=== PATIENT | male | born 1985 | race African-American/Black ===

== ENCOUNTER 2017-11-23 12:58 | Emergency (ER) | payer OTHER ==
[~2017-11-23] VITALS: Ht 180.3 cm; Wt 79.8 kg
[2017-11-23 13:23] LABS: ABSOLUTE BASOPHIL COUNT 0 /CUMM (0.0-0.2); ABSOLUTE EOSINOPHIL COUNT 0.1 /CUMM (0.0-0.7); ABSOLUTE GRANULOCYTE CT 1.4 /CUMM (1.4-6.5); ABSOLUTE LYMPH COUNT 1.4 /CUMM (1.2-3.4); ABSOLUTE MONOCYTE COUNT 0.4 /CUMM (0.10-0.60); BASOPHIL % 0.6 % (0.0-2.0); EOSINOPHIL % 3.9 % (0-5); GRANULOCYTE % 41.1 % (42.2-75.2); HEMATOCRIT 41.3 % (42-52); MEAN CORPUSCULAR HGB CONC 35.1 G/DL (33.0-37.0); MEAN CORPUSCULAR VOLUME 88.3 FL (80.0-94.0); MEAN PLATELET VOLUME 8.3 FL (7.4-10.4); PLATELET COUNT 168 /CUMM (130-400); RBC DISTRIBUTION WIDTH 13.3 % (11.5-14.5); RED BLOOD CELL CT 4.67 /CUMM (4.70-6.10); WHITE BLOOD CELL COUNT 3.4 /CUMM (4.8-10.8)
--- NOTE | 2017-11-23 14:14 | CT SCAN REPORT ---
EXAMINATION: CT ABDOMEN AND PELVIS WITHOUT CONTRAST CLINICAL INFORMATION: Right flank and right lower back pain. Presumptive diagnosis of kidney stones. COMPARISON: None. TECHNIQUE: Multidetector volumetric imaging was performed from the superior aspect of the liver through the pubic symphysis. Sagittal and coronal reformatted images were obtained on the technologist workstation. DLP: 253.44 mGy-cm. FINDINGS: LUNG BASES: The visualized lung bases are unremarkable. LIVER, GALLBLADDER, AND BILIARY TREE: The liver is normal in size, shape, and attenuation. No focal hepatic lesion on noncontrast imaging. No biliary ductal dilatation is present. The gallbladder is unremarkable with no evidence of radiopaque gallstones, gallbladder wall thickening, or obvious pericholecystic inflammatory changes. PANCREAS: Unremarkable on noncontrast imaging. SPLEEN, ADRENAL GLANDS: Unremarkable on noncontrast imaging. KIDNEYS AND URETERS: The kidneys are normal in size, shape, and attenuation. No hydronephrosis, hydroureter, or calculi seen. No perinephric stranding. BLADDER: There is a 0.4 cm calcification seen in the posterior midline along the bladder dome (series 2, image 69), which on reconstructed sagittal sequences appears to lie just posterior to the bladder, likely a small phlebolith. Other phleboliths are also seen in the pelvis bilaterally. No definite bladder calculi are seen. Bladder is, however, suboptimally assessed due to decompressed state. PELVIC VISCERA: Unremarkable. GASTROINTESTINAL TRACT: The small and large bowel are unremarkable. The proximal segment of the appendix extending from its origin from the cecum over a length of approximately 2.5 to 3 cm, demonstrates low-level internal hyperdensity, possibly representing ingested debris versus early appendicolith formation. There is air seen beyond this segment in the mid and distal appendix and no abnormal dilatation of the appendix or periappendiceal stranding is noted. The cecal base and terminal ileum are unremarkable. ABDOMINAL WALL: No significant hernia is appreciated. LYMPH NODES, VASCULAR: Unremarkable. OSSEOUS STRUCTURES: There is a small lucency with sclerotic margins in the right iliac bone (series 2, image 52), consistent with an incidental small bone cyst. Bony structures otherwise unremarkable. IMPRESSION: 1. No evidence of nephrolithiasis or obstructive uropathy. 2. No focal right lower quadrant process seen to explain the patient's pain. Incidental hyperdense luminal material is seen in the proximal appendix, which is otherwise unremarkable.
[2017-11-23] MEDS ORDERED: TRAMADOL HCL50 M1 PO (14:55)
[2017-11-23] MEDS ORDERED: IBUPROFEN800 M1 PO (14:56)
[2017-11-23] MEDS ORDERED: ZOFRAN ODT4 M1 SL (14:56)
--- NOTE | 2017-11-23 14:56 | ED GENERAL ADULT ---
History of Present Illness General Chief Complaint: General Adult Stated Complaint: ABD PAIN, BACK PAIN, +V Source: patient Exam Limitations: no limitations Vital Signs & Intake/Output Vital Signs & Intake/Output Vital Signs Date Time Temp Pulse Resp B/P B/P Pulse O2 O2 Flow FiO2 Mean Ox Delivery Rate 11/23 1508 98.1 68 18 124/57 97 11/23 1302 98.1 66 16 141/94 98 Room Air Allergies Coded Allergies: Penicillins (Mild, UNKNOWN 10/19/17) Reconcile Medications Ibuprofen 800 MG TABLET 1 TAB PO TID PRN pain Ondansetron (Zofran Odt) 4 MG TAB.RAPDIS 1 TAB SL TID PRN nausea Tramadol HCl 50 MG TABLET 1 TAB PO Q6P PRN PAIN Triage Note: PT COMPLAINS OF SUDDEN ONSET OF R SIDE FLANK PAIN AND BURNING WITH URINATION THAT STARTED AROUND NOON, PAIN IS SHARP AND CONSTANT AND POSITIVE NAUSEA Triage Nurses Notes Reviewed? yes Onset: Abrupt Duration: day(s): Timing: single episode today Injury Environment: home Severity: mild, moderate No Modifying Factors: none HPI: 32-year-old male no medical history presents for evaluation of sudden onset of right flank and right lower back pain. Patient states symptoms started several hours prior to presentation. The symptoms have improved since first starting. The pain is located in the right flank radiates to the right back. Describes cramping. He reports associated nausea and one episode of vomiting. He denies frequency or urgency dysuria or penile discharge. No fevers no lower abdominal pain or chest pain. No fevers. Past History Travel History Traveled to [place] past 21 day No Medical History Any Pertinent Medical History? see below for history Neurological: NONE EENT: NONE Cardiovascular: NONE Respiratory: NONE Gastrointestinal: NONE Hepatic: NONE Renal: NONE Musculoskeletal: NONE Psychiatric: NONE Endocrine: NONE Blood Disorders: NONE Cancer(s): NONE Surgical History Surgical History: non-contributory Psychosocial History What is your primary language Swiss Tobacco Use: Never used ETOH Use: denies use Illicit Drug Use: denies illicit drug use Family History Hx Contributory? No Review of Systems Review of Systems Constitutional: Reports: no symptoms. EENTM: Reports: no symptoms. Respiratory: Reports: no symptoms. Cardiovascular: Reports: no symptoms. GI: Reports: see HPI, abdominal pain (FLANK). Genitourinary: Reports: no symptoms. Musculoskeletal: Reports: see HPI, back pain. Skin: Reports: no symptoms. Neurological/Psychological: Reports: no symptoms. Hematologic/Endocrine: Reports: no symptoms. Immunologic/Allergic: Reports: no symptoms. All Other Systems: Reviewed and Negative Physical Exam Physical Exam General Appearance: well developed/nourished, no apparent distress, alert, awake Head: atraumatic, normal appearance Eyes: Bilateral: normal appearance, PERRL, EOMI. Ears, Nose, Throat: hearing grossly normal Neck: normal inspection, supple, full range of motion Respiratory: normal breath sounds, chest non-tender, no respiratory distress, lungs clear Cardiovascular: regular rate/rhythm, normal peripheral pulses Peripheral Pulses: 2+ radial (R), 2+ radial (L) Gastrointestinal: normal bowel sounds, soft, no organomegaly, tenderness (RIGHT FLANK) Back: normal inspection, normal range of motion, RIGHT-SIDED LUMBAR PARASPINAL MUSCLES TENDER PALPATION AND NO MIDLINE TENDERNESS NO cva TENDERNESS Extremities: normal inspection, normal range of motion, no edema Neurologic/Psych: no motor/sensory deficits, awake, alert, oriented x 3, normal gait Skin: intact, normal color, warm/dry Lymphatic: no anterior cervical guillermina Core Measures ACS in differential dx? No CVA/TIA Diagnosis: No Sepsis Present: No Sepsis Focused Exam Completed? No Progress Differential Diagnoses I considered the following diagnoses in my evaluation of the patient: [Kidney stone, appendicitis, UTI, pyelonephritis, STD] Plan of Care: Orders Procedure Date/time Status Add-on Test (ER Only) 11/23 1418 Active URINALYSIS 11/23 1305 Complete COMPREHENSIVE METABOLIC PANEL 11/23 1305 Complete CBC WITHOUT DIFFERENTIAL 11/23 1305 Complete Laboratory Tests 11/23/17 1417: Urinalysis LIGHT H, Urine Color ANGÉLICA, Urine Clarity CLEAR, Urine pH 6.0, Ur Specific [place] 1.025, Urine Protein 30 H, Urine Ketones TRACE H, Urine Nitrite NEG, Urine Bilirubin NEG, Urine Urobilinogen 1.0, Ur Leukocyte Esterase NEG, Ur Microscopic SEDIMENT EXAMINED, Urine RBC 25-50 H, Urine Bacteria MOD H , Urine Mucus MOD H, Urine Hemoglobin LARGE H, Urine Glucose NEG 11/23/17 1316: Anion Gap 9, Estimated GFR > 60, BUN/Creatinine Ratio 17.5, Glucose 108 H, Calcium 9.5, Total Bilirubin 1.5 H, AST 42, ALT 36, Alkaline Phosphatase 49, Total Protein 7.2, Albumin 4.5, Globulin 2.7, Albumin/Globulin Ratio 1.7, CBC w Diff NO MAN DIFF REQ, RBC 4.67 L, MCV 88.3, MCH 31.0, MCHC 35.1, RDW 13.3, MPV 8.3, Gran % 41.1 L, Lymphocytes % 42.3, Monocytes % 12.1 H, Eosinophils % 3.9, Basophils % 0.6, Absolute Granulocytes 1.4, Absolute Lymphocytes 1.4, Absolute Monocytes 0.4, Absolute Eosinophils 0.1, Absolute Basophils 0 Patient is here with right flank pain. Symptoms started suddenly associated with nausea and vomiting. There is right flank and right lower back is tender to palpation. Patient is medicated with Toradol Zofran IV fluids. Lab CT scan ordered. CT scan is negative for any acute findings. Blood work is unremarkable. Urinalysis does show a large amount of blood. This may represent a passed kidney stone. CT scan impression Incidental hyperdense luminal material is seen in the proximal appendix, which is otherwise unremarkable. Patient has no tenderness at McBurney's point or the right lower quadrant his pain is in the right flank. He has no white count he is afebrile. Considered the possibility of appendicitis however a passed kidney stone is more likely at this time. Patient is feeling much better after Toradol Zofran is able tolerate fluids. He was given instructions to rest drink plenty of fluids Tylenol ibuprofen for pain and tramadol for severe pain and Zofran for nausea follow-up with urology. Discussed return precautions in detail. Patient agrees the plan Diagnostic Imaging: Viewed by Me: CT Scan. Discussed w/RAD: CT Scan. Radiology Impression: PATIENT: TONJA LEON PRESENT AGE: 32 PATIENT ACCOUNT NO: [id number] : 86 LOCATION: [facility] ORDERING PHYSICIAN: Haris JENNINGS SERVICE DATE: 11/23/17 EXAM TYPE: CAT - CT ABD & PELVIS W/O IV CONTRAS EXAMINATION: CT ABDOMEN AND PELVIS WITHOUT CONTRAST CLINICAL INFORMATION: Right flank and right lower back pain. Presumptive diagnosis of kidney stones. COMPARISON: None. TECHNIQUE: Multidetector volumetric imaging was performed from the superior aspect of the liver through the pubic symphysis. Sagittal and coronal reformatted images were obtained on the technologist workstation. DLP: 253.44 mGy-cm. FINDINGS: LUNG BASES: The visualized lung bases are unremarkable. LIVER, GALLBLADDER, AND BILIARY TREE: The liver is normal in size, shape, and attenuation. No focal hepatic lesion on noncontrast imaging. No biliary ductal dilatation is present. The gallbladder is unremarkable with no evidence of radiopaque gallstones, gallbladder wall thickening, or obvious pericholecystic inflammatory changes. PANCREAS: Unremarkable on noncontrast imaging. SPLEEN, ADRENAL GLANDS: Unremarkable on noncontrast imaging. KIDNEYS AND URETERS: The kidneys are normal in size, shape, and attenuation. No hydronephrosis, hydroureter, or calculi seen. No perinephric stranding. BLADDER: There is a 0.4 cm calcification seen in the posterior midline along the bladder dome (series 2, image 69), which on reconstructed sagittal sequences appears to lie just posterior to the bladder, likely a small phlebolith. Other phleboliths are also seen in the pelvis bilaterally. No definite bladder calculi are seen. Bladder is, however, suboptimally assessed due to decompressed state. PELVIC VISCERA: Unremarkable. GASTROINTESTINAL TRACT: The small and large bowel are unremarkable. The proximal segment of the appendix extending from its origin from the cecum over a length of approximately 2.5 to 3 cm, demonstrates low-level internal hyperdensity, possibly representing ingested debris versus early appendicolith formation. There is air seen beyond this segment in the mid and distal appendix and no abnormal dilatation of the appendix or periappendiceal stranding is noted. The cecal base and terminal ileum are unremarkable. ABDOMINAL WALL: No significant hernia is appreciated. LYMPH NODES, VASCULAR: Unremarkable. OSSEOUS STRUCTURES: There is a small lucency with sclerotic margins in the right iliac bone (series 2, image 52), consistent with an incidental small bone cyst. Bony structures otherwise unremarkable. IMPRESSION: 1. No evidence of nephrolithiasis or obstructive uropathy. 2. No focal right lower quadrant process seen to explain the patient's pain. Incidental hyperdense luminal material is seen in the proximal appendix, which is otherwise unremarkable. DICTATED BY: Aniya Connell MD DATE/TIME DICTATED:11/23/171357 BANQUET CHEF:DUANE DATE/TIME TRANSCRIBED:11/23/171357 CONFIDENTIAL, DO NOT COPY WITHOUT APPROPRIATE AUTHORIZATION. <Electronically signed in Other Vendor System> SIGNED BY: Aniya Connell MD N. 11/23/17 1414 Initial ED EKG: none Departure Departure Disposition: HOME OR SELF CARE Condition: Stable Clinical Impression Primary Impression: Kidney stones Referrals: Patient Has No Primary Care Dr (PCP/Family) Additional Instructions: REST AND DRINK plenty of fluids. Zofran for nausea ibuprofen for pain. TRAMADOL for severe pain. MAKE A FOLLOW UP WITH DR BAKER UROLOGIST VIKY. MONIOTR SYMPTOMS. IF YOU HAVE WORSENING PAIN, FEVER OR ANY OTHER CONCERNS RETURN IMMEIDATLY. Departure Forms: Customer Survey General Discharge Information Prescriptions: Current Visit Scripts Tramadol HCl 1 TAB PO Q6P PRN PAIN #10 TAB Ondansetron (Zofran Odt) 1 TAB SL TID PRN nausea #10 TAB Ibuprofen 1 TAB PO TID PRN pain #30 TAB Critical Care Note Critical Care Note Critical Care Time: non-applicable ED Attending Observation Initial Observation Note: I have seen and personally examined TONJA LEON on 11/23/17 at 1806. I agree with the current emergency department documentation. The disposition (admission or discharge) is uncertain at this time, he needs a period of observation for the following reason(s): The ED Nurse caring for this patient has been personally informed as to what the patient is being observed for.
[2017-11-23 15:08] VITALS: BP 124/57
== END 2017-11-23 15:09 ==
LOC: ERH 12:58
PROVIDERS: Physician Assistant Medical
DX: N20.0 Calculus of kidney (principal); R10.9 Unspecified abdominal pain; M54.5 Low back pain; R11.2 Nausea with vomiting, unspecified
CPT/HCPCS: 74176; 81001; 96374; J1885